=== PATIENT | male | born 1970 | race Caucasian/White ===

== ENCOUNTER 2019-08-24 01:52 | Emergency (ER) | payer OTHER ==
[2019-08-24] MEDS ORDERED: Oseltamivir 75 MG CAP ONE (02:20)
== END 2019-08-24 02:26 | disposition home or self-care (01) ==
LOC: MADERS 01:52
DX: J06.9 Acute upper respiratory infection, unspecified (principal); E11.9 Type 2 diabetes mellitus without complications; I10 Essential (primary) hypertension; F41.9 Anxiety disorder, unspecified; F32.9 Major depressive disorder, single episode, unspecified
CPT/HCPCS: 99283